=== PATIENT | male | born 1985 | race African-American/Black ===

== ENCOUNTER 2020-03-02 22:55 | Emergency (ER) | payer OTHER, SELFPAY | END 2020-03-02 23:26 | disposition home or self-care (01) | LOC: MADERS 22:55 | DX: K08.89 Other specified disorders of teeth and supporting structures (principal); E11.9 Type 2 diabetes mellitus without complications; I10 Essential (primary) hypertension; J45.909 Unspecified asthma, uncomplicated; Z79.84 Long term (current) use of oral hypoglycemic drugs; Z79.899 Other long term (current) drug therapy | CPT/HCPCS: 99282 ==